=== PATIENT | female | born 1930 | race Caucasian/White ===

== ENCOUNTER 2016-05-15 17:46 | Emergency (ER) | payer OTHER ==
[~2016-05-15] VITALS: Ht 152.4 cm; Wt 68.0 kg
--- NOTE | ~2016-05-15 | EKG ---
[address] [address] ELECTROCARDIOGRAM REPORT Name: MARITZA REYES Room #: 170-1 ADM IN M.R.#: [id number] Admission: 05/15/16 Attend Phys: Ruben Gooden Discharge: Date of : 28 Report #: [id number] THIS REPORT FOR: //name// [facility] ED Test Date: 2016-05-15 Test Time: 18:09:07 Pat Name: MARITZA REYES Department: Room: 170 Gender: F Principal Strategist: ARLYN : 1930 Requested By: Romana Zarate Order Number: [id number] MD: Jimenez Whitmore Measurements Intervals [place] Rate: 117 P: 28 FL: 121 QRS: -48 QRSD: 81 T: 27 QT: 340 QTc: 475 Interpretive Statements Sinus tachycardia Atrial premature complex Abnormal R-wave progression, late transition Inferior infarct, old No previous ECG available for comparison Electronically Signed On 05-16-2016 8:19:40 [employer] by Jimenez Whitmore [email or web address] <ELECTRONICALLY SIGNED> By: Jimenez Whitmore MD 05/16/16 0819 08 08 Jimenez Whitmore MD /JOSSIE
[~2016-05-15 17:46] MED LIST: ADULT LOW DOSE81 MG PO; ALPRAZOLAM 0.50.5 M1 PO; AMLODIPINE BESYL5 MG PO; ASPIRIN EC81 M1 PO; AZOR 5-20 MG T1 EACH PO; BACTRIM 400-801 EACH PO; CALCIUM/MAGNESIUM; CYCLOBENZAPRINE10 MG PO; CYCLOBENZAPRINE5 MG PO; CYMBALTA60 MG PO; ENDOCET 5-3251 EACH PO; FELDENE20 MG PO; HYDROCODON-ACE1 EAC7 PO; LEVOTHYROXIN0.025 MG PO; LIDODERM 5%1 PATCH TOP; MULTIVITAMINS PO; NABUMETONE 500500 M1 PO; NEURONTIN 300300 M1 PO; NORCO 5-325 TA1 EACH PO; OMEPRAZOLE40 MG PO; OXYBUTYNIN 5 MG5 M2 PO; OXYCODONE HCL 55 MG PO; OXYCODONE-ACET1 EACH PO; TIZANIDINE HCL 22 M1 PO; TRAMADOL 50 MG50 MG PO; TRAMADOL HCL50 MG PO; ULTRAM 50MG TAB50 MG PO; VESICARE 5 MG TA5 MG PO; VESICARE10 M1 PO; VITAMIN D; XANAX 0.5 MG0.5 M1 PO
[2016-05-15 17:49] VITALS: BP 88/58
[2016-05-15 18:08] LABS: ABG SAMPLE TYPE ARTERIAL; BE(vivo) -8.9 mmol/L (-2 to +3); HCO3 14.9 mmol/L (22.0-26.0); LACTATE 7.07 mmol/L (0.5-2.0); O2Hb 77.1 % (92.0-98.0); PCO2 27.8 mmHg (35.0-45.0); PO2 45.3 mmHg (80.0-100.0); STICK SITE R.RADIAL; pH 7.346 (7.360-7.450); sO2 79.8 % (92.0-98.0); tCO2 15.7 mmol/L (24.0-30.0)
[2016-05-15 18:39] LABS: HEMATOCRIT 49.2 % (37.0-47.0); HEMOGLOBIN 16.4 gm/dL (12.0-15.0); MCH 32.4 pg (26.0-34.0); MCHC 33.3 % (28.0-37.0); MCV 97.2 fL (80.0-100.0); RBC 5.06 mil/uL (4.20-5.00)
[2016-05-15 18:40] LABS: MANUAL DIFF YES
[2016-05-15 18:42] LABS: WBC 1.2 thou/uL (4.0-11.0)
[2016-05-15 18:49] LABS: ANION GAP 19 mmol/L (7-16); BUN 17 mg/dL (7-18); CALCIUM 9.2 mg/dL (8.5-10.1); CHLORIDE 99 mmol/L (98-107); CO2 20 mmol/L (21-32); CREATININE 1.7 mg/dL (0.6-1.3); GLUCOSE 223 mg/dL (70-99); POTASSIUM 3.1 mmol/L (3.5-5.1); SODIUM 138 mmol/L (136-145)
[2016-05-15 18:51] LABS: INR 1.4
[2016-05-15 18:57] LABS: ALBUMIN 3.1 g/dL (3.4-5.0); ALKALINE PHOSPHATASE 90 U/L (46-116); NT-PRO BRAIN NAT PEPTIDE 2020 pg/mL (<300); SGOT 39 U/L (15-37); SGPT 29 U/L (30-65); TOTAL BILIRUBIN 1.1 mg/dL (<0.1-1.0); TOTAL PROTEIN 6.4 g/dL (6.4-8.2); TROPONIN-I < 0.04 ng/mL (<0.04-0.07)
[2016-05-15 19:40] LABS: ABSOLUTE NEUTROPHILS 0.8 thou/uL (1.4-8.2); ATYPICAL LYMPHS 3 %; METAMYELOCYTES 1 %; PLATELET COUNT 182 thou/uL (150-400); TOTAL CELL COUNT 100
[2016-05-15 20:07] LABS: ABG SAMPLE TYPE ARTERIAL; BE(vivo) -14.4 mmol/L (-2 to +3); HCO3 12.9 mmol/L (22.0-26.0); LACTATE 6.87 mmol/L (0.5-2.0); O2(CT) 20.3 mL/dL (15.0-23.0); O2Hb 96.8 % (92.0-98.0); PCO2 34.9 mmHg (35.0-45.0); PO2 130.6 mmHg (80.0-100.0); STICK SITE R.RADIAL; TIDAL VOLUME 450 ml; pH 7.185 (7.360-7.450); sO2 97.9 % (92.0-98.0)
[2016-05-15 22:49] VITALS: BP 00/00
== END 2016-05-16 07:32 ==
LOC: ER 17:46 → EROBS 21:14 → ER 21:14
PROVIDERS: Emergency Medicine
DX: R65.21 Severe sepsis with septic shock (principal); J96.00 Acute respiratory failure, unspecified whether with hypoxia or hypercapnia; J18.9 Pneumonia, unspecified organism